=== PATIENT | female | born 1940 | race Caucasian/White ===

== ENCOUNTER 2018-01-03 08:32 | Emergency (ER) | payer OTHER ==
--- NOTE | 2018-01-03 08:40 | EDPHY ---
H & P Stated Complaint: HTN, dizziness, GEE, N/V Time Seen by Provider: 01/03/18 08:40 - Personal History Current Tetanus/Diphtheria Vaccine: Unsure Current Tetanus Diphtheria and Acellular Pertussis (TDAP): Unsure - Medical/Surgical History Hx Asthma: No Hx Chronic Respiratory Disease: No Hx Diabetes: No Hx Cardiac Disease: No Hx Renal Disease: No Hx Cirrhosis: No Hx Alcoholism: No Hx HIV/AIDS: No Hx Splenectomy or Spleen Trauma: No Other PMH: none reported - Social History Smoking Status: Never smoked Constitutional: Initial Vital Signs Temperature (C) 36.6 C 01/03/18 08:34 Heart Rate 82 01/03/18 08:34 Respiratory Rate 18 01/03/18 08:34 Blood Pressure 208/96 H 01/03/18 08:34 O2 Sat (%) 97 01/03/18 08:34 O2 Delivery Mode Room Air Allergies/Adverse Reactions: No Known Allergies Allergy (Unverified 01/03/18 08:34) Home Medications: Medication Instructions Recorded Meclizine HCl [Meclizine HCl 12.5 12.5 mg PO BID #14 tab 01/03/18 mg (*)] Medical Decision Making - Diagnostics Imaging Results: Imaging Impressions Chest X-Ray 01/03/18 08:59 Impression: Normal chest. Brain MRI 01/03/18 09:10 Impression: Mild periventricular and deep hemispheric white matter change which is nonspecific but can be seen with small vessel ischemic disease. No evidence for acute infarct. Mild generalized cerebral atrophy. Results called and discussed with Jerad Plata MD on 01/03/2018 at 11:12 a.m. Imaging: Discussed imaging studies w/ will call clerk Radiologist, I viewed and interpreted images myself ED Course/Re-evaluation: CHIEF COMPLAINT: Dizzy, headache, nausea and vomiting HISTORY OF PRESENT ILLNESS: The patient is a 77 y/o female complaining of feeling dizzy, having a headache, and being nauseous and vomiting onset yesterday morning. Around a week ago she had similar symptoms, but they resolved within a couple of minutes. Since this episode she has taken her blood pressure multiple times every day and the systolic has not been over 140. Yesterday she went to her primary care provider and had a blood pressure with a systolic of 180. Today she presented to [facility] where she had a blood pressure with a systolic of 190 , so they sent her to the emergency department. Denies taking hypertension medication. Denies recent illness, chest pain, shortness of breath. Her symptoms worsen while moving, but they are alleviated while lying down. Denies fever, headache, numbness, paresthesias, abdominal pain, urinary or bowel complaints. REVIEW OF SYSTEMS: A 10 point review of systems was performed and is negative with the exception of the elements mentioned in the history of present illness. PHYSICAL EXAM: HR, BP, O2 Sat, RR. Temp noted General Appearance: Nauseated while moving, alert, well hydrated, appropriate, and non-toxic appearing. Head: Atraumatic without scalp tenderness or obvious injury Eyes: Several beats of nystagmus to the left. Pupils equal, round, reactive to light and accommodation, EOMI, no trauma, no injection. Ears: Clear bilaterally, no perforation, normal landmarks Nose: Atraumatic, no rhinorrhea, clear. Throat: There is no erythema or exudates, no lesions, normal tonsils, mucus membranes moist. Neck: Supple, nontender, no lymphadenopathy. Respiratory: No retractions, no distress, no wheezes, and no accessory muscle use. Lungs are clear to auscultation bilaterally. Cardiovascular: Regular rate and rhythm, no murmurs, rubs, or gallops. Bilateral carotid, radial, dorsalis pedis, and posterior tibial pulses intact. Good capillary refill all extremities. Gastrointestinal: Abdomen is soft, nontender, non-distended, no masses, no rebound, no guarding, no peritoneal signs. Musculoskeletal: Normal active ROM of all extremities, atraumatic. Neurological: Alert, appropriate, and interactive. The patient has normal DTRs and non-focal cranial nerves, motor, sensory, and cerebellar exam. Skin: No rashes, good turgor, no nodules on palpation. Past medical history: Denies Past surgical history: Denies Family history: Denies Social history: at bedside, lives in [place] and [place], retired DIAGNOSTICS/PROCEDURES/CRITICAL CARE TIME: The 12 lead EKG was interpreted by myself as sinus rhythm with a rate of 79, inverted T waves. See hard copy and/or "tracemaster" electronic copy for interpretation. Brain MRI: Normal DIFFERENTIAL DIAGNOSIS: The differential diagnosis for the patient's dizziness included but was not limited to peripheral and central causes of vertigo, orthostatic causes including dehydration, cardiogenic and neurogenic causes, and blood loss. MEDICAL DECISION MAKING: The patient is a 77 y/o female presenting with feeling dizzy, having a headache , and being nauseous and vomiting onset yesterday morning. On exam she has several beats of nystagmus to the left and becomes more nauseated when moving her head. Her blood pressure is currently 197/73. Labs, EKG, chest x-ray and Brain MRI ordered. 4mg IV Zofran and 12.5mg PO Meclizine administered. 0847: I interpreted EKG as sinus rhythm with a rate of 79 and inverted T waves 0924: Patient's I-stat is normal. 1115: Spoke with Dr. Mcmahan, patient has a normal brain MRI. 1120: Reassessed patient and discussed imaging and laboratory findings. Patient' s symptoms are consistent with vertigo; I have prescribed her Meclizine for this. I will try to get the patient to ENT today as she is leaving [place] today. Return precautions provided; patient is comfortable with this plan. 1140: ENT is not able to see this patient today as an outpatient, but will see her tomorrow. - Data Points Laboratory Results: Laboratory Results 01/03/18 08:58 01/03/18 08:58 01/03/18 01/03/18 01/03/18 08:58 08:58 08:58 WBC 10.01 10^3/uL H 10^3/uL (3.80-9.50) RBC 4.38 10^6/uL 10^6/uL (4.18-5.33) Hgb 13.1 g/dL g/dL (12.6-16.3) Hct 39.5 % % (38.0-47.0) MCV 90.2 fL fL (81.5-99.8) MCH 29.9 pg pg (27.9-34.1) MCHC 33.2 g/dL g/dL (32.4-36.7) RDW 13.9 % % (11.5-15.2) Plt Count 243 10^3/uL 10^3/uL (150-400) MPV 10.5 fL fL (8.7-11.7) Neut % (Auto) 68.3 % % (39.3-74.2) Lymph % (Auto) 20.9 % % (15.0-45.0) [place] % (Auto) 8.1 % % (4.5-13.0) Eos % (Auto) 1.5 % % (0.6-7.6) Baso % (Auto) 0.6 % % (0.3-1.7) Nucleat RBC Rel Count 0.0 % % (0.0-0.2) Absolute Neuts (auto) 6.84 10^3/uL H 10^3/uL (1.70-6.50) Absolute Lymphs (auto) 2.09 10^3/uL 10^3/uL (1.00-3.00) Absolute Monos (auto) 0.81 10^3/uL H 10^3/uL (0.30-0.80) Absolute Eos (auto) 0.15 10^3/uL 10^3/uL (0.03-0.40) Absolute Basos (auto) 0.06 10^3/uL 10^3/uL (0.02-0.10) Absolute Nucleated RBC 0.00 10^3/uL 10^3/uL (0-0.01) Immature Gran % 0.6 % % (0.0-1.1) Immature Gran # 0.06 10^3/uL 10^3/uL (0.00-0.10) PT 12.6 SEC SEC (12.0-15.0) INR 0.92 (0.83-1.16) APTT 24.1 SEC SEC (23.0-38.0) Sodium 142 mEq/L mEq/L (135-145) Potassium 4.5 mEq/L mEq/L (3.3-5.0) Chloride 105 mEq/L mEq/L (97-110) Carbon Dioxide 23 mEq/l mEq/l (22-31) Anion Gap 14 mEq/L mEq/L (8-16) BUN 19 mg/dL mg/dL (7-23) Creatinine 1.1 mg/dL H mg/dL (0.6-1.0) Estimated GFR 48 Glucose 109 mg/dL H mg/dL (70-100) Calcium 10.6 mg/dL H mg/dL (8.5-10.4) Magnesium 2.2 mg/dL mg/dL (1.6-2.3) Troponin I < 0.012 ng/mL ng/mL (0.000-0.034) NT-Pro-B Natriuret Pep 396 pg/mL pg/mL (0-450) Medications Given: Discontinued Medications Meclizine HCl (Meclizine Hcl) 12.5 mg PO EDNOW ONE Stop: 01/03/18 09:14 Last Admin: 01/03/18 09:25 Dose: 12.5 mg Ondansetron HCl (Zofran) 4 mg IVP EDNOW ONE Stop: 01/03/18 09:13 Last Admin: 01/03/18 09:25 Dose: 4 mg Departure - Departure Disposition: Home, Routine, Self-Care Clinical Impression: Vertigo Hypertension Qualifiers: Hypertension type: unspecified Qualified Code(s): I10 - Essential (primary) hypertension Condition: Good Instructions: Vertigo (ED), Hypertension (ED) Additional Instructions: 1. Use meclizine as prescribed. 2. Drink plenty of fluids. 3. Return to the emergency department immediately for headache, numbness, weakness, severe vertigo, neck pain, inability to tolerate fluids by mouth or other worsening of condition. 4. If symptoms persist for more than 48 hours, followup with your primary care physician and/or a neurologist for further evaluation. Referrals: Karl Diego MD [Medical Doctor] - As per Instructions Omari Duran MD [Medical Doctor] - As per Instructions Prescriptions: Meclizine HCl [Meclizine HCl 12.5 mg (*)] 12.5 mg PO BID #14 tab Report Scribed for: Jerad Plata Report Scribed by: Ada Shipley Date of Report: 01/03/18 Time of Report: 08:40
--- NOTE | 2018-01-03 08:49 | CPEKG ---
Heart Rate: 79 RR Interval: 759 P-R Interval: 192 QRSD Interval: 86 QT Interval: 420 QTC Interval: 482 P [place]: 54 QRS [place]: 21 T Wave [place]: -21 EKG Severity - BORDERLINE ECG - EKG Impression: SINUS RHYTHM EKG Impression: BORDERLINE T ABNORMALITIES, DIFFUSE LEADS Electronically Signed By: Jerad Plata 03-Jan-2018 14:03:10
[2018-01-03 09:06] LABS: PLATELET COUNT 243 10^3/uL (150-400)
[2018-01-03] MEDS ORDERED: ONDANSETRON 4 MG/2 ML VIAL IVP ONE (09:12)
[2018-01-03] MEDS ORDERED: MECLIZINE HCL 25 MG TAB PO ONE (09:13)
[2018-01-03 09:15] LABS: INR 0.92 (0.83-1.16); PROTIME(PATIENT) 12.6 SEC (12.0-15.0)
[2018-01-03 12:04] VITALS: BP 175/93
== END 2018-01-03 12:03 | disposition home or self-care (01) ==
DX: R42 Dizziness and giddiness (principal); I10 Essential (primary) hypertension
CPT/HCPCS: 70551; 71046; 93005; 96374; 99285; J2405

== ENCOUNTER → 2018-08-21 | Outpatient (CLI) | payer OTHER | LOC: BHFA 10:15 | PROVIDERS: ATTEND Nurse Practitioner Adult Health | DX: I34.0 Nonrheumatic mitral (valve) insufficiency (principal); I10 Essential (primary) hypertension ==

== ENCOUNTER → 2018-09-14 | Outpatient (CLI) | payer OTHER | LOC: BHFA 10:00 | PROVIDERS: ATTEND Internal Medicine Cardiovascular Disease | DX: I34.0 Nonrheumatic mitral (valve) insufficiency (principal); I10 Essential (primary) hypertension ==